=== PATIENT | male | born 2000 | race African-American/Black ===

== ENCOUNTER 2019-04-26 20:53 | Inpatient (IN) | payer OTHER, MEDICAID | END 2019-04-27 19:07 | disposition home or self-care (01) | LOC: TELE 04-27 00:35 → ER 20:53 → WEST WING 04-27 13:52 | DX: E11.10 Type 2 diabetes mellitus with ketoacidosis without coma (principal); E87.5 Hyperkalemia ==

== ENCOUNTER 2020-05-31 22:57 | Emergency (ER) | payer MEDICAID ==
[~2020-05-31] VITALS: Ht 188 cm; Wt 81.6 kg
[~2020-05-31 22:57] MED LIST: INSLANTI SC; INSLISPI SC
[2020-05-31 23:17] VITALS: BP 138/73
[2020-06-01] MEDS ORDERED: HYDROcodone-ACET 5/325MG TAB PO ONE (02:00)
== END 2020-06-01 02:36 | disposition home or self-care (01) ==
LOC: ER 22:57
DX: S22.31XA Fracture of one rib, right side, initial encounter for closed fracture (principal); E10.9 Type 1 diabetes mellitus without complications; F17.210 Nicotine dependence, cigarettes, uncomplicated; Y04.0XXA Assault by unarmed brawl or fight, initial encounter; Y93.89 Activity, other specified; Y92.89 Other specified places as the place of occurrence of the external cause; Y99.8 Other external cause status
CPT/HCPCS: 71101